=== PATIENT | male | born 1935 | race Caucasian/White ===

== ENCOUNTER 2021-03-11 14:23 | Inpatient (IN) | payer MEDICARE, MEDICAID ==
[~2021-03-11] VITALS: Ht 185.5 cm; Wt 77.3 kg
[2021-03-11] MEDS ORDERED: ONDANSETRON 4 MG (ZOFRAN) ORAL DISSOLVE TAB PO PRN (16:15)
[2021-03-11] MEDS ORDERED: ENOXAPARIN 40 MG/0.4 ML (LOVENOX) SYR SC SCH (16:15)
[2021-03-11] MEDS ORDERED: MELATONIN 3 MG TABLET PO PRN (16:15)
[2021-03-11] MEDS ORDERED: ACETAMINOPHEN 325 MG TABLET PO PRN (16:15)
[2021-03-11] MEDS ORDERED: ONDANSETRON 4 MG/2 ML (SDV) Z0FRAN IV PRN (16:15)
[2021-03-11] MEDS ORDERED: ANTACID SUSP 30 ML UDC (MYLANTA) PO PRN (16:15)
[2021-03-11] MEDS ORDERED: BISACODYL 10 MG SUPP (DULCOLAX) PR PRN (16:15)
[2021-03-11] MEDS ORDERED: polyethylene glycoL POWDER 17 GM (MIRALAX) PACK PO PRN (16:15)
[2021-03-11] MEDS: niCARdipine IV 50 MG in NS (IVPB) 230 ML IV SCH (17:50)
--- NOTE | 2021-03-11 18:36 | History & Physical-Hospitalist ---
History of Present Illness HPI/Chief Complaint Jamie Douglas is an 85 year old male with PMH HTN, T2DM, pacemaker, who presented with altered mental status. He presented to [facility]. They found him to be very bradycardic. He was given Atropine and his heart rates improved. He was transferred for Cardiology evaluation. Upon my exam, he denies chest pain. He is not having palpitations. He is not short of breath. He says he has a defibrillator and thinks it is a pacemaker too. He is a poor historian. His daughter is present but she is unable to answer questions about his medical history as well. She says that he choked on a chip earlier and she thinks this is what caused his problems. He was reportedly nauseous and vomiting prior to arrival. Source: patient, family Exam Limitations: physical impairment (hearing difficulty, dementia) Date Seen 03/11/21 Time Seen by a Provider: 18:00 Attending Physician Kristie Youssef MD PCP No,Local Physician Referring Physician Date of Admission Mar 11, 2021 at 15:05 Home Medications & Allergies Home Medications Reviewed patient Home Medication Reconciliation performed by pharmacy medication reconciliations diet technician registered and/or nursing. Patients Allergies have been reviewed. Allergies Allergies Coded Allergies No Allergy Information Available (Ntlognbitb41/11/21) Past Tnpenbz-Ezfkbb-Zxmaup Hx Patient Social History Tobacco Use?: No Use of E-Cig and/or Vaping dev: No Substance use?: No Alcohol Use?: No Pt feels they are or have been: No Immunizations Up To Date Tetanus Booster (TDap): Unknown Current Status Advance Directives: No Communicates: Verbally Primary Language: Cook Islander Preferred Spoken Language: [place] Islander Is interpretation needed?: No Sensory deficits: Hearing impairment Implanted or Applied Medical D: Pacemaker Past Medical History Surgeries: Defibrillator, Pacemaker Hypertension Diabetes, Insulin dep Family Medical History No Pertinent Family Hx Review of Systems Constitutional: no symptoms reported EENTM: no symptoms reported Respiratory: no symptoms reported Cardiovascular: no symptoms reported Gastrointestinal: nausea, vomiting Genitourinary: no symptoms reported Musculoskeletal: no symptoms reported Skin: no symptoms reported Psychiatric/Neurological: No Symptoms Reported Physical Exam Physical Exam Vital Signs Vital Signs - First Documented 03/11/21 03/11/21 15:20 15:45 Pulse 57 Resp 18 B/P (MAP) 200/93 Pulse Ox 94 O2 Delivery Room Air Capillary Refill : Height, Weight, BMI Height: '" Weight: lbs. oz. kg; 23.59 BMI Method: General Appearance: No Apparent Distress, Chronically ill, Thin HEENT: PERRL/EOMI, Pharynx Normal Neck: Normal Inspection, Supple Respiratory: Lungs Clear, Normal Breath Sounds, No Respiratory Distress, Other (left chest wall subcutaneous device) Cardiovascular: No Edema, No Murmur, Bradycardia Gastrointestinal: Normal Bowel Sounds, Non Tender, Soft, Mass (left upper quadrant, firm, mobile) Extremity: Normal Inspection, Non Tender, No Pedal Edema Neurologic/Psychiatric: Alert, Normal Mood/Affect, Disoriented Skin: Normal Color, Warm/Dry Results Results/Procedures Labs Patient resulted labs reviewed. Assessment/Plan Admission Diagnosis Symptomatic bradycardia Admission Status: Inpatient Order (span 2 midnights) Reason for Inpatient Admission: Cardiology evaluation Assessment and Plan Symptomatic bradycardia Pacemaker malfunction Cardiology consulted Monitor on telemetry Repeat EKG Hold Metoprolol Consulte TeleICU HTN Cardene ordered Hold home meds T2DM Sliding scale insulin Abdominal mass XR abdomen ordered DVT prophylaxis: Lovenox Diagnosis/Problems Diagnosis/Problems (1) Symptomatic bradycardia Status: Acute (2) Pacemaker malfunction Status: Acute (3) HTN (hypertension) Status: Chronic (4) T2DM (type 2 diabetes mellitus) Status: Chronic (5) Abdominal mass Status: Acute (6) Advanced age Status: Chronic KRISTIE YOUSSEF MD Mar 11, 2021 18:36
--- NOTE | 2021-03-11 20:15 | Diagnostic Imaging Report ---
INDICATION: Abdominal mass. EXAMINATION: Abdominal film obtained at 7:55 p.m. FINDINGS: The abdominal bowel gas pattern is unremarkable. There is moderate stool throughout the colon. There is no overt obstruction or ileus. Stimulator device is seen with battery pack over the midabdomen. IMPRESSION: Unremarkable bowel gas pattern with moderate stool in the colon. Stimulator device is seen with battery pack overlying the mid abdomen. Dictated by: Dictated on workstation # [id number]
[2021-03-11] MEDS: inSUlin ASPART (NovoLOG) 1 UNIT/0.01 ML (CHARGE PER UNIT) SC SCH (22:16)
[2021-03-11] MEDS: DOCUSATE SODIUM 100 MG (COLACE) CAP PO SCH (22:16)
[2021-03-11] MEDS: SENNOSIDES 8.6 MG (SENOKOT) TAB PO SCH (22:17)
[2021-03-12 04:32] LABS: BASOPHILS # (AUTO) 0.1 10^3/uL (0.0-0.1); BASOPHILS % (AUTO) 0 % (0-10); EOSINOPHILS # (AUTO) 0.1 10^3/uL (0.0-0.3); EOSINOPHILS % (AUTO) 1 % (0-10); HEMATOCRIT 33 % (40-54); HEMOGLOBIN 11.4 g/dL (13.3-17.7); LYMPHOCYTES # (AUTO) 1.6 10^3/uL (1.0-4.0); LYMPHOCYTES % (AUTO) 13 % (12-44); MEAN CORPUSCULAR HEMOGLOBIN 27 pg (25-34); MEAN CORPUSCULAR HGB CONC 35 g/dL (32-36); MEAN CORPUSCULAR VOLUME 78 fL (80-99); MONOCYTES # (AUTO) 1.1 10^3/uL (0.0-1.0); MONOCYTES % (AUTO) 10 % (0-12); NEUTROPHILS # (AUTO) 8.7 10^3/uL (1.8-7.8); NEUTROPHILS % (AUTO) 75 % (42-75); PLATELET COUNT 157 10^3/uL (130-400); WHITE BLOOD COUNT 11.6 10^3/uL (4.3-11.0)
[2021-03-12 04:55] LABS: CALCIUM 8.8 MG/DL (8.5-10.1)
[2021-03-12 05:00] LABS: CREATININE SERUM 1.06 MG/DL (0.60-1.30)
[2021-03-12] MEDS ORDERED: DEXTROSE 50% 50 ML (IMS) SYR IV ONE (05:00)
[2021-03-12] MEDS ORDERED: DEXTROSE 50% 50 ML (IMS) SYR ONE ×2 (05:01→08:08)
[2021-03-12 05:02] LABS: MAGNESIUM 1.8 MG/DL (1.6-2.4)
--- NOTE | 2021-03-12 05:02 | Diagnostic Imaging Report ---
HISTORY: Bradycardia COMPARISON: None TECHNIQUE: Frontal view of the chest FINDINGS: There are interstitial opacities in the lung bases and airspace opacities in the right lung base. There is no large effusion or pneumothorax. The cardiac silhouette is mildly large. Left-sided automatic implantable cardiac defibrillator lead is noted. There is aortic atherosclerosis. IMPRESSION: Bilateral interstitial and airspace opacities, right greater than left, may represent mild edema or infection. Dictated by: Dictated on workstation # [id number]
--- NOTE | 2021-03-12 05:49 | Consultation-Cardiology ---
HPI-Cardiology Cardiology Consultation Date of Consultation 03/12/21 Date of Admission Time Seen by Provider: 05:42 Indication: Bradycardia HPI 85 years old gentleman with history of diabetes mellitus, admitted with change in mental status and malignant hypertension. He was noted to be bradycardic although he had a pacemaker. He is a poor historian, unable to provide history. Denied any chest pain, no shortness of breath. No syncope. He reported that he received a shock earlier prior to his admission. Heart rate is better at this time. Blood pressure is better on Cardene drip. Family yesterday were interviewed by Dr. Morales and they were unable to provide a full history. Home Medications & Allergies Allergies: Coded Allergies: No Allergy Information Available (Unverified , 03/11/21) Home Medication List Reviewed: Yes JLJ-Qlsqlc-Qskqhc Hx Patient Social History Have you traveled recently?: No Alcohol Use?: No Past Medical History Unable to provide past medical history Family Medical History Significant Family History: No Pertinent Family Hx Family Medical Hx Noncontributory Review of Systems-General Review of Systems Constitutional: no symptoms reported, see HPI EENTM: see HPI, no symptoms reported Respiratory: no symptoms reported, see HPI Cardiovascular: no symptoms reported, see HPI Gastrointestinal: see HPI, nausea, vomiting Genitourinary: no symptoms reported, see HPI Musculoskeletal: no symptoms reported Skin: no symptoms reported, see HPI Psychiatric/Neurological: No Symptoms Reported, See HPI Reviewed Test Results Reviewed Test Results Lab Laboratory Tests Test 03/11/21 20:17 03/12/21 04:24 Range/Units Glucometer 147 H 70-110 MG/DL White Blood Count 11.6 H 4.3-11.0 10^3/uL Red Blood Count 4.24 L 4.30-5.52 10^6/uL Hemoglobin 11.4 L 13.3-17.7 g/dL Hematocrit 33 L 40-54 % Mean Corpuscular Volume 78 L 80-99 fL Mean Corpuscular Hemoglobin 27 25-34 pg Mean Corpuscular Hemoglobin Concent 35 32-36 g/dL Red Cell Distribution Width 12.9 10.0-14.5 % Platelet Count 157 130-400 10^3/uL Mean Platelet Volume 11.0 9.0-12.2 fL Immature Granulocyte % (Auto) 0 % Neutrophils (%) (Auto) 75 42-75 % Lymphocytes (%) (Auto) 13 12-44 % Monocytes (%) (Auto) 10 0-12 % Eosinophils (%) (Auto) 1 0-10 % Basophils (%) (Auto) 0 0-10 % Neutrophils # (Auto) 8.7 H 1.8-7.8 10^3/uL Lymphocytes # (Auto) 1.6 1.0-4.0 10^3/uL Monocytes # (Auto) 1.1 H 0.0-1.0 10^3/uL Eosinophils # (Auto) 0.1 0.0-0.3 10^3/uL Basophils # (Auto) 0.1 0.0-0.1 10^3/uL Immature Granulocyte # (Auto) 0.1 0.0-0.1 10^3/uL Sodium Level 138 135-145 MMOL/L Potassium Level 4.0 3.6-5.0 MMOL/L Chloride Level 106 98-107 MMOL/L Carbon Dioxide Level 23 21-32 MMOL/L Anion Gap 9 5-14 MMOL/L Blood Urea Nitrogen 15 7-18 MG/DL Creatinine 1.06 0.60-1.30 MG/DL Estimat Glomerular Filtration Rate 66 BUN/Creatinine Ratio 14 Glucose Level 56 *L 70-105 MG/DL Calcium Level 8.8 8.5-10.1 MG/DL Magnesium Level 1.8 1.6-2.4 MG/DL Physical Exam Physical Exam Vital Signs Vital Signs - First Documented 03/11/21 03/11/21 03/11/21 00:00 15:20 15:45 Temp 36.6 Pulse 57 Resp 18 B/P (MAP) 200/93 Pulse Ox 94 O2 Delivery Room Air Capillary Refill : Height, Weight, BMI Height: '" Weight: lbs. oz. kg; 23.59 BMI Method: General Appearance: No Apparent Distress, Chronically ill, Thin HEENT: PERRL/EOMI, Pharynx Normal Neck: Normal Inspection, Supple Respiratory: Lungs Clear, Normal Breath Sounds, No Respiratory Distress, Other (left chest wall subcutaneous device) Cardiovascular: No Edema, No Murmur, Bradycardia Gastrointestinal: Normal Bowel Sounds, Non Tender, Soft, Mass (left upper quadrant, firm, mobile) Extremity: Normal Inspection, Non Tender, No Pedal Edema Neurologic/Psychiatric: Alert, Normal Mood/Affect, Disoriented Skin: Normal Color, Warm/Dry A/P-Cardiology Admission Diagnosis Hypertensive emergency Pacemaker malfunction Sinus node dysfunction Diabetes mellitus Assessment/Plan Hypertensive emergency, malignant hypertension with change in mental status probably hypertensive encephalopathy on top of dementia. He was started on Cardene drip and achieve adequate blood pressure control, I will start him on losartan and evaluate tolerance and response. Malfunctioning pacemaker/ICD. Patient has an ICD device that is implanted in his abdominal cavity and the lead is advanced subcutaneously up to the left subclavian vein and then to the right ventricle. Patient reported that the device was placed in the mid 90s in his abdomen and he has a scar at that area. I took him to the Station Tender and did fluoroscopy and followed the device and the lead that appeared to be intact. I attempted to interrogate the device using [employer] and [employer] interrogation system, no response and it was unable to communicate with the device. I placed a magnet on top of the device and there is no intrinsic pacing or safety pacing. I am assuming that the device has a depleted battery and he did not have any follow-up for a while for it. I will continue monitoring, will visit with the family and discuss treatment option, upgrading or advancing the device will require transferring to a facility with dye range tender. At this point we will continue to monitor Sinus node dysfunction with transient episode of severe bradycardia. Currently off beta-blockers and calcium channel blockers. I am starting losartan and evaluate tolerance and response. Diabetes mellitus, maintained on sliding scale and managed by primary care physician [place] Anderson historian. FADUMO CASTANON MD Mar 12, 2021 05:48
--- NOTE | 2021-03-12 05:51 | Cardiac Procedure Note ---
Cardiology Procedures Date of Procedure 03/12/21 Fluoroscopy for pacemaker device: Patient has a device implanted in the abdomen, chest x-ray showed portion of the lead and had abdominal x-ray showing the device. Patient was brought to the Lockstitch Machine Operator, no sedation was required, fluoroscopy and inspection of the device and the lead was made showing intact device with a scar on top of it and the abdomen and the lead was advanced through the left subclavian vein to the right ventricle. It appeared to be implanted this way and not migrated device. I attempted to interrogate the device with [employer] and [email or web address], both equipment did not recognize the device. I placed a magnet on top of the device and there was no safety pacing or any pacing from the device which suggest that the battery has been depleted Conclusion Intact single-chamber ICD device implanted in the abdominal cavity Depleted pacemaker device FADUMO CASTANON MD Mar 12, 2021 05:51
[2021-03-12] MEDS: niCARdipine IV 50 MG in NS (IVPB) 230 ML IV SCH (07:35)
[2021-03-12] MEDS: inSUlin ASPART (NovoLOG) 1 UNIT/0.01 ML (CHARGE PER UNIT) SC SCH ×3 (07:35→20:36)
[2021-03-12] MEDS: MAGNESIUM 1 GM/100 ML IVPB 100 ML IV SCH (07:36)
[2021-03-12] MEDS: POTASSIUM CL 10MEQ/50ML IVPB 50 ML IV SCH (07:36)
[2021-03-12] MEDS: KCL 20 MEQ TAB (K-DUR) PO SCH (07:37)
--- NOTE | 2021-03-12 08:59 | Progress Note - Hospitalist ---
Subjective HPI/CC On Admission Jamie Douglas is an 85 year old male with PMH HTN, T2DM, pacemaker, who presented with altered mental status. He presented to [place] [facility]. They found him to be very bradycardic. He was given Atropine and his heart rates improved. He was transferred for Cardiology evaluation. Upon my exam, he denies chest pain. He is not having palpitations. He is not short of breath. He says he has a defibrillator and thinks it is a pacemaker too. He is a poor historian. His daughter is present but she is unable to answer questions about his medical history as well. She says that he choked on a chip earlier and she thinks this is what caused his problems. He was reportedly nauseous and vomiting prior to arrival. Objective Exam Vital Signs Vital Signs Date Time Temp Pulse Resp B/P (MAP) Pulse Ox O2 Delivery O2 Flow Rate FiO2 03/12/21 12:00 52 19 164/68 96 Room Air 03/12/21 08:00 36.4 Capillary Refill : Results/Procedures Lab Laboratory Tests 03/12/21 04:24 Patient resulted labs reviewed. YAMEL KEARNS Mar 12, 2021 08:58
[2021-03-12] MEDS: LOSARTAN 50 MG (COZAAR) TAB PO SCH ×2 (09:00→09:03)
[2021-03-12] MEDS: SENNOSIDES 8.6 MG (SENOKOT) TAB PO SCH ×2 (09:01→20:37)
[2021-03-12] MEDS: DOCUSATE SODIUM 100 MG (COLACE) CAP PO SCH ×2 (09:01→20:37)
[2021-03-12] MEDS: ENOXAPARIN 40 MG/0.4 ML (LOVENOX) SYR SC SCH (09:01)
--- NOTE | 2021-03-12 10:33 | Tele-ICU Progress Note ---
Subjective Date Seen by a Provider: Mar 12, 2021 Time Seen by a Provider: 09:30 Subjective/Events-last exam This virtual visit was conducted using real time audio/video. Thank you for asking us to see this patient for symptomatic bradycardia. Recent events: Interrogation of PM/AICD revealed depleted batteries. PE: Episodes of bradycardia down to 20s. O2 sat 95% on RA. HEENT: No obvious masses, adenopathy or JVD. Chest: clear to auscultation. CV: RRR S1 S2 No murmur or added sounds. Abd: Non-tender. Bowel sounds Y. : Unremarkable. Andino N. FORENSIC STRUCTURAL ENGINEER/psychiatric: Grossly intact. No obvious focal findings. Extremities: No edema. Capillary refill < 3 seconds. Skin: unremarkable. Results: Elevated WCC 11.6. Decreased Hb 11.4. CXR: B opacities. Available chart/ vitals / labs / images reviewed. Video assessment done using teleICU camera, rest of exam as per RN. A/P: Bradycardia: Continue present management per cardiology service. Critical Care: critically ill patient. Cont. SSI, Horacio. Cardene stopped. Discussed with RN Yvonne. Asked RN to reach out to eICU if any questions or concerns later. Time spent with patient/coordination of care with other health professionals (mins): Sepsis Event Evaluation Height, Weight, BMI Height: '" Weight: lbs. oz. kg; 23.59 BMI Method: Exam Exam Patient acknowledged, consented, and participated in this virtual visit which was conducted using real time audio/video Vital Signs Date Time Temp Pulse Resp B/P (MAP) Pulse Ox O2 Delivery O2 Flow Rate FiO2 03/12/21 10:00 59 23 158/75 91 Room Air 03/12/21 09:00 58 16 138/63 94 Room Air 03/12/21 08:00 96 Room Air 03/12/21 08:00 36.4 03/12/21 08:00 56 21 135/63 94 Room Air 03/12/21 07:45 60 28 124/60 91 Room Air 03/12/21 07:30 57 15 157/73 96 Room Air 03/12/21 07:15 55 16 138/70 97 Room Air 03/12/21 07:00 57 28 123/73 91 Room Air 03/12/21 07:00 58 03/12/21 06:45 55 23 145/75 95 Room Air 03/12/21 06:30 51 11 131/65 95 Room Air 03/12/21 06:15 53 28 135/68 93 Room Air 03/12/21 06:00 52 15 141/71 91 Room Air 03/12/21 05:45 50 16 137/61 90 Room Air 03/12/21 05:00 52 15 129/67 97 Room Air 03/12/21 04:45 43 27 130/70 98 Room Air 03/12/21 04:30 15 26 143/87 95 Room Air 03/12/21 04:15 57 20 137/71 99 Room Air 03/12/21 04:00 94 Room Air 03/12/21 04:00 57 21 145/80 97 Room Air 03/12/21 03:45 57 18 134/65 97 Room Air 03/12/21 03:30 59 42 122/92 96 Room Air 03/12/21 03:15 58 16 134/98 99 Room Air 03/12/21 03:00 139/70 Room Air 03/12/21 02:45 57 17 152/70 99 Room Air 03/12/21 02:30 54 16 131/72 99 Room Air 03/12/21 02:15 55 18 143/70 98 Room Air 03/12/21 02:00 54 17 142/62 99 Room Air 03/12/21 01:45 57 12 141/71 100 Room Air 03/12/21 01:30 56 12 129/64 99 Room Air 03/12/21 01:15 58 16 128/61 99 Room Air 03/12/21 01:00 74 Room Air 03/12/21 01:00 70 03/12/21 00:45 130/78 Room Air 03/12/21 00:30 64 29 133/75 99 Room Air 03/12/21 00:15 81 16 123/61 98 Room Air 03/12/21 00:00 130/78 Room Air 03/12/21 00:00 94 Room Air 03/12/21 00:00 36.8 03/11/21 23:45 60 20 119/60 98 Room Air 03/11/21 23:30 62 16 118/74 97 Room Air 03/11/21 23:15 62 3 125/59 97 Room Air 03/11/21 23:00 65 17 133/65 97 Room Air 03/11/21 22:45 63 7 128/70 96 Room Air 03/11/21 22:30 63 10 126/73 72 Room Air 03/11/21 22:15 61 33 157/100 82 Room Air 03/11/21 22:00 59 47 134/69 98 Room Air 03/11/21 21:45 63 35 138/64 99 Room Air 03/11/21 21:30 65 38 131/69 98 Room Air 03/11/21 21:15 72 29 133/67 98 Room Air 03/11/21 21:00 71 23 127/62 97 Room Air 03/11/21 20:45 74 10 115/62 96 Room Air 03/11/21 20:30 75 73 163/92 84 Room Air 03/11/21 20:15 65 34 153/60 95 Room Air 03/11/21 20:00 94 Room Air 03/11/21 20:00 36.2 03/11/21 20:00 66 18 141/56 98 Room Air 03/11/21 19:45 64 34 142/85 100 Room Air 03/11/21 19:30 65 30 133/82 93 Room Air 03/11/21 19:15 63 29 123/86 91 Room Air 03/11/21 19:00 66 39 122/97 93 Room Air 03/11/21 19:00 70 03/11/21 18:00 58 25 161/82 92 Room Air 03/11/21 17:06 54 03/11/21 17:00 55 20 171/86 100 Room Air 03/11/21 16:45 60 16 155/114 94 Room Air 03/11/21 16:30 12 157/79 Room Air 03/11/21 16:15 62 26 171/73 Room Air 03/11/21 16:00 56 16 199/88 Room Air 03/11/21 15:45 57 18 200/93 98 Room Air 03/11/21 15:20 94 Room Air I & O 03/12/21 07:00 Intake Total 300 ml Output Total 600 ml Balance -300 ml Height & Weight Height: '" Weight: lbs. oz. kg; 23.59 BMI Method: General Appearance: No Apparent Distress, Chronically ill, Thin HEENT: PERRL/EOMI, Pharynx Normal Neck: Normal Inspection, Supple Respiratory: Lungs Clear, Normal Breath Sounds, No Respiratory Distress, Other (left chest wall subcutaneous device) Cardiovascular: No Edema, No Murmur, Bradycardia Peripheral Pulses: 1+ Dorsalis Pedis (R), 1+ Left Dors-Pedis (L) Extremity: Normal Inspection, Non Tender, No Pedal Edema Neurologic/Psychiatric: Alert, Normal Mood/Affect, Disoriented Skin: Normal Color, Warm/Dry Results Lab Laboratory Tests 03/12/21 04:24 Assessment/Plan Assessment/Plan See free text Critical Care: Critically Ill Patient JERMAINE GILLESPIE MD Mar 12, 2021 10:33
[2021-03-12] MEDS ORDERED: FUROSEMIDE 40 MG/4 ML INJ (LASIX) IVP ONE (11:30)
--- NOTE | 2021-03-12 12:55 | Progress Note - Hospitalist ---
YAMEL KEARNS 03/12/21 1255: Subjective HPI/CC On Admission Date Seen by Provider: Mar 12, 2021 Time Seen by Provider: 09:00 Jamie Douglas is an 85 year old male with PMH HTN, T2DM, pacemaker, who presented with altered mental status. He presented to [facility]. They found him to be very bradycardic. He was given Atropine and his heart rates improved. He was transferred for Cardiology evaluation. Upon my exam, he denies chest pain. He is not having palpitations. He is not short of breath. He says he has a defib rillator and thinks it is a pacemaker too. He is a poor historian. His daughter is present but she is unable to answer questions about his medical history as well. She says that he choked on a chip earlier and she thinks this is what caused his problems. He was reportedly nauseous and vomiting prior to arrival. Subjective/Events-last exam The patient was in bed comfortably this morning. He did not have any acute complaints. Nursing reported that his HR dropped to 29 BPM last night. Review of Systems PT unable to answer ROS questions Objective Exam Vital Signs Vital Signs Date Time Temp Pulse Resp B/P (MAP) Pulse Ox O2 Delivery O2 Flow Rate FiO2 03/12/21 12:00 52 19 164/68 96 Room Air 03/12/21 08:00 36.4 Capillary Refill : General Appearance: No Apparent Distress, Chronically ill HEENT: PERRL/EOMI, Pharynx Normal, Moist Mucous Membranes Respiratory: Chest Non Tender, Lungs Clear, Normal Breath Sounds, No Accessory Muscle Use, No Respiratory Distress Cardiovascular: Regular Rate, Rhythm, No Murmur, Normal Peripheral Pulses Gastrointestinal: Normal Bowel Sounds, No Organomegaly, Non Tender, Soft, Mass (Left side, near midline) Extremity: No Calf Tenderness, No Pedal Edema Neurologic/Psychiatric: Alert, Disoriented (was able to state his location, but unable to state the year) Skin: Normal Color, Warm/Dry Results/Procedures Lab Laboratory Tests 03/12/21 04:24 Patient resulted labs reviewed. Assessment/Plan Assessment and Plan Assess & Plan/Chief Complaint 85 YO male admitted for symptomatic bradycardia and pacemaker malfunction. Hx of HTN, T2DM, and abdominal mass. Symptomatic bradycardia Pacemaker malfunction Cardiology managing Hold Metoprolol Discuss code status with granddaughter HTN Cardene stopped switched to Losartan T2DM Sliding scale insulin Abdominal mass No acute management DVT prophylaxis: Lovenox JANELL YOUSSEF MD 03/12/21 1839: Subjective HPI/CC On Admission Time Seen by Provider: 10:20 Assessment/Plan Assessment and Plan Assess & Plan/Chief Complaint Patient comfortable and asymptomatic. Heart rate stable at this time, intermittent bradycardia overnight reported. Cardiology following. No family at bedside. Attempt to contact family unsuccessful. Diagnosis/Problems Diagnosis/Problems (1) Symptomatic bradycardia Status: Acute (2) Pacemaker malfunction Status: Acute (3) T2DM (type 2 diabetes mellitus) Status: Acute Qualifiers: Qualified Codes: E11.649 - Type 2 diabetes mellitus with hypoglycemia without coma; Z79.4 - superintendent terminal (current) use of insulin Supervisory-Addendum Brief Verification & Attestation Participated in pt care: history, MDM, physical Personally performed: exam, history, MDM, supervision of care Care discussed with: Medical Student Procedures: n/a Results interpretation: Verified all documentation A medical student performed and documented this service in my presence. I reviewed and verified all information documented by the medical student and made modifications to such information, when appropriate. I personally performed the physical exam and medical decision making. YAMEL KEARNS Mar 12, 2021 12:55 JANELL YOUSSEF MD Mar 12, 2021 18:39
[2021-03-13 04:56] LABS: CALCIUM 8.7 MG/DL (8.5-10.1)
[2021-03-13 05:01] LABS: CREATININE SERUM 1.35 MG/DL (0.60-1.30)
[2021-03-13 05:03] LABS: MAGNESIUM 1.7 MG/DL (1.6-2.4)
[2021-03-13] MEDS: KCL 20 MEQ TAB (K-DUR) PO SCH (05:59)
[2021-03-13] MEDS: MAGNESIUM 1 GM/100 ML IVPB 100 ML IV SCH (05:59)
[2021-03-13] MEDS: POTASSIUM CL 10MEQ/50ML IVPB 50 ML IV SCH (05:59)
[2021-03-13] MEDS: inSUlin ASPART (NovoLOG) 1 UNIT/0.01 ML (CHARGE PER UNIT) SC SCH ×2 (06:00→13:50)
--- NOTE | 2021-03-13 08:38 | Cardiology Progress Note ---
Subjective Date Seen by Provider: Mar 13, 2021 Time Seen by Provider: 08:36 Subjective/Events-last exam Patient is laying down in bed, still confused. Currently heart rate is better. No new complaint. Review of Systems General: No Chills, No Night Sweats; Fatigue, Malaise; No Appetite, No Other HEENT: No Head Aches, No Visual Changes, No Eye Pain, No Ear Pain, No Dysphasia, No Sinus Congestion, No Post Nasal Drip, No Sore Throat, No Other Pulmonary: Dyspnea; No Cough, No Pleuritic Chest Pain, No Other Cardiovascular: No: Chest Pain, Palpitations, Orthopnea, Paroxysmal Noc. Dyspnea, Edema, Lt Headedness, Other Objective-Cardiology Exam Last Set of Vital Signs Vital Signs 03/13/21 03/13/21 03/13/21 03/13/21 07:50 08:00 08:15 08:30 Temp 36.6 Pulse 51 Resp 18 B/P (MAP) 172/79 Pulse Ox 99 O2 Delivery Room Air I&O Intake and Output 03/13/21 00:00 Intake Total 1110 ml Output Total 950 ml Balance 160 ml Intake Oral 1110 ml Output Urine Total 950 ml # Voids 7 General: Alert, Oriented X3, Cooperative HEENT: Atraumatic, PERRLA Neck: Supple, No JVD, No Thyromegaly Lungs: Clear to Auscultation, Normal Air Movement Heart: Regular Rate, Normal S1, Normal S2, No Murmurs Abdomen: Normal Bowel Sounds, Soft, No Tenderness, No Hepatosplenomegaly, No Masses Extremities: No Clubbing, No Cyanosis, No Edema, Normal Pulses, No Tenderness/Swelling Skin: No Rashes, No Breakdown, No Significant Lesion Neuro: Normal Gait, Normal Speech, Strength at 5/5 X4 Ext, Normal Tone, Sensation Intact Psych/Mental Status: Mental Status NL, Mood NL Results Lab Laboratory Tests 03/13/21 04:29 A/P-Cardiology Admission Diagnosis Hypertensive emergency Pacemaker malfunction Sinus node dysfunction Diabetes mellitus Assessment/Plan Hypertensive emergency, malignant hypertension with change in mental status probably hypertensive encephalopathy on top of dementia. Blood pressure is better. Continue to monitor Malfunctioning pacemaker/ICD. Patient has an ICD device that is implanted in his abdominal cavity and the lead is advanced subcutaneously up to the left subclavian vein and then to the right ventricle. Patient reported that the device was placed in the mid 90s in his abdomen and he has a scar at that area. I took him to the [facility] [employer] and did fluoroscopy and followed the device and the lead that appeared to be intact. I attempted to interrogate the device using [employer] and [employer] interrogation system, no response and it was unable to communicate with the device. I placed a magnet on top of the device and there is no intrinsic pacing or safety pacing. I am assuming that the device has a depleted battery and he did not have any follow-up for a while for it. Patient appears to be on metoprolol as an outpatient, it was discontinued and his heart rate is better, it is in the mid 50s with stable blood pressure. I will discuss with the family regarding the next step in his management plan, he is 85, I recommend conservative management. Planning for discharge today and arrange for follow-up as an outpatient Sinus node dysfunction with transient episode of severe bradycardia. Currently off beta-blockers and calcium channel blockers. Patient was on valsartan as an outpatient which will be restarted. Diabetes mellitus, maintained on sliding scale and managed by primary care physician Dementia, poor historian. FADUMO CASTANON MD Mar 13, 2021 08:38
[2021-03-13] MEDS: ENOXAPARIN 40 MG/0.4 ML (LOVENOX) SYR SC SCH (08:55)
[2021-03-13] MEDS ORDERED: VALSARTAN 160 MG (DIOVAN) TABLET PO SCH (09:00)
[2021-03-13] MEDS: DOCUSATE SODIUM 100 MG (COLACE) CAP PO SCH (09:07)
[2021-03-13] MEDS: SENNOSIDES 8.6 MG (SENOKOT) TAB PO SCH (09:07)
--- NOTE | 2021-03-13 09:41 | Tele-ICU Progress Note ---
Subjective Date Seen by a Provider: Mar 13, 2021 Time Seen by a Provider: 09:41 Sepsis Event Evaluation Height, Weight, BMI Height: '" Weight: lbs. oz. kg; 23.59 BMI Method: Exam Exam Patient acknowledged, consented, and participated in this virtual visit which was conducted using real time audio/video Vital Signs Date Time Temp Pulse Resp B/P (MAP) Pulse Ox O2 Delivery O2 Flow Rate FiO2 03/13/21 08:30 51 18 99 03/13/21 08:15 56 29 93 Room Air 03/13/21 08:02 Room Air 03/13/21 08:00 53 24 172/79 100 Room Air 03/13/21 07:50 36.6 03/13/21 07:45 51 16 95 Room Air 03/13/21 07:30 53 12 96 Room Air 03/13/21 07:15 55 18 99 Room Air 03/13/21 07:00 52 03/13/21 07:00 56 21 137/77 83 Room Air 03/13/21 06:00 58 18 160/91 97 Room Air 03/13/21 05:00 60 18 182/86 96 Room Air 03/13/21 04:00 99 Room Air 03/13/21 04:00 59 17 189/98 96 Room Air 03/13/21 03:00 65 16 125/86 94 Room Air 03/13/21 02:00 57 17 166/79 97 Room Air 03/13/21 01:00 59 03/13/21 01:00 61 17 184/83 97 Room Air 03/13/21 00:00 99 Room Air 03/13/21 00:00 73 20 170/74 Room Air 03/12/21 23:47 70 184/85 91 Room Air 03/12/21 23:28 36.5 03/12/21 23:00 60 195/98 94 Room Air 03/12/21 22:00 59 13 187/92 100 Room Air 03/12/21 21:00 55 11 177/88 97 Room Air 03/12/21 20:00 60 15 176/90 97 Room Air 03/12/21 20:00 36.6 03/12/21 20:00 96 Room Air 03/12/21 19:00 60 11 160/82 93 Room Air 03/12/21 19:00 59 03/12/21 18:00 63 20 151/78 94 Room Air 03/12/21 17:00 56 11 162/82 93 Room Air 03/12/21 16:44 36.3 03/12/21 16:00 96 Room Air 03/12/21 16:00 57 20 131/70 98 Room Air 03/12/21 15:00 59 10 136/85 93 Room Air 03/12/21 14:00 54 11 146/83 93 Room Air 03/12/21 13:00 48 14 123/102 93 Room Air 03/12/21 12:57 54 03/12/21 12:00 36.3 03/12/21 12:00 52 19 164/68 96 Room Air 03/12/21 12:00 96 Room Air 03/12/21 11:00 58 10 134/90 96 Room Air 03/12/21 10:00 59 23 158/75 91 Room Air I & O 03/13/21 07:00 Intake Total 1060 ml Output Total 950 ml Balance 110 ml Height & Weight Height: '" Weight: lbs. oz. kg; 23.59 BMI Method: General Appearance: No Apparent Distress, Chronically ill HEENT: PERRL/EOMI, Pharynx Normal, Moist Mucous Membranes Neck: Normal Inspection, Supple Respiratory: Chest Non Tender, Lungs Clear, Normal Breath Sounds, No Accessory Muscle Use, No Respiratory Distress Cardiovascular: Regular Rate, Rhythm, No Murmur, Normal Peripheral Pulses Peripheral Pulses: 1+ Dorsalis Pedis (R), 1+ Left Dors-Pedis (L) Extremity: No Calf Tenderness, No Pedal Edema Neurologic/Psychiatric: Alert, Disoriented (was able to state his location, but unable to state the year) Skin: Normal Color, Warm/Dry Results Lab Laboratory Tests 03/12/21 04:24 03/13/21 04:29 Assessment/Plan Assessment/Plan (Tele-ICU Physician , Progress Note ) Available chart/ vitals / labs / Images reviewed Video assessment done using teleICU camera, rest of exam as per RN Discussed with RN , EXAM PER RN Events overnight : Afebrile FiO2 - ra I/O = even Drips: Pressors: , hemodynamically stable Consultants: cards Hospital course: (03/11) Admitted a 85 y/o who was transferred from [facility] for symptomatic bradycardia. Possible pacemaker malfunction. A/P -Hypertensive emergency, malignant hypertension - off frips , po as per cards Interst changes on CXT , mildly eleb WBC - no cough , no fever - monitor off ABX now Malfunctioning pacemaker/ICD - as per cards Sinus node dysfunction with transient episode of severe bradycardia - a sper cards acute kidney insuff - monitor closely Cr , not on diuretics Hypoglycemia - resolved , monitor Lines : (Central Line Necessity Reviewed) Andino: OG: Nutrition: po Analgesia: Anxiety/ delirium - baseline confusion VTE Prophylaxis: gio 40 Stress Ulcer Prophylaxis: po Plans in collaboration with bedside consultants and IM MDs. Discussed with RN to reach out if any questions or concerns A total of 31 minutes of critical care time was devoted to this patient today, required to treat and/or prevent further deterioration of critical care condition ( as above) . LYNN ASTORGA MD Mar 13, 2021 09:41
[2021-03-13 09:57] LABS: ALBUMIN 3.3 GM/DL (3.2-4.5)
[2021-03-13 10:00] LABS: TOTAL PROTEIN 6.9 GM/DL (6.4-8.2)
[2021-03-13 10:02] LABS: BILIRUBIN,TOTAL 1.2 MG/DL (0.1-1.0)
[2021-03-13 10:06] LABS: BILIRUBIN,DIRECT 0.5 MG/DL (0.0-0.3); BILIRUBIN,INDIRECT 0.7 MG/DL
--- NOTE | 2021-03-13 10:22 | Discharge Summary ---
Discharge Summary Hospital Course Was the Problem List Reviewed?: Yes Problems/Dx: (1) Symptomatic bradycardia Status: Acute (2) Pacemaker malfunction Status: Acute (3) T2DM (type 2 diabetes mellitus) Status: Acute Qualifiers: Qualified Codes: E11.649 - Type 2 diabetes mellitus with hypoglycemia without coma; Z79.4 - termite technician (current) use of insulin Hospital Course Date of Admission: Mar 11, 2021 at 15:05 Admission Diagnosis : Family Physician/Provider: No,Local Physician Date of Discharge: 03/13/21 Discharge Diagnosis: Symptomatic bradycardia, nonfunctioning pacemaker suspected for 10 years, dementia Hospital Course: Hospital course: Pt had a brief hospital course, he was admitted when he was found to have bradycardia and his pacemaker was incapacitated and needed battery changed over but upon further assessment, cardiology evaluated the pacemaker to have been not functioning for ten years. 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 Labs and Pending Lab Test: Laboratory Tests 03/12/21 10:29: Glucometer 114H 03/12/21 15:41: Glucometer 90 03/12/21 20:36: Glucometer 98 03/13/21 04:29: Sodium Level 138, Potassium Level 4.0, Chloride Level 104, Carbon Dioxide Level 23, Anion Gap 11, Blood Urea Nitrogen 17, Creatinine 1.35H, Estimat Glomerular Filtration Rate 50, BUN/Creatinine Ratio 13, Glucose Level 107H, Calcium Level 8.7, Magnesium Level 1.7, Total Bilirubin 1.2H, Direct Bilirubin 0.5H, Indirect Bilirubin 0.7, Aspartate Amino Transf (AST/SGOT) 19, Alanine Aminotransferase (ALT/SGPT) 10, Alkaline Phosphatase 89, Total Protein 6.9, Albumin 3.3 Microbiology 03/11/21 MRSA Screen - Final, Complete MRSA not isolated Assessment/Pt Instructions PCP in 1 week Discharge Planning: <30 minutes discharge planning Discharge Instructions Discharge Diet: No Restrictions Activity as Tolerated: Yes Discharge Physical Examination Vital Signs Vital Signs Date Time Temp Pulse Resp B/P (MAP) Pulse Ox O2 Delivery O2 Flow Rate FiO2 03/13/21 10:00 72 18 160/94 03/13/21 09:15 Room Air 03/13/21 08:45 99 03/13/21 07:50 36.6 General Appearance: No Apparent Distress, WD/WN, Chronically ill Respiratory: Lungs Clear Cardiovascular: Regular Rate, Rhythm Allergies: Coded Allergies: No Allergy Information Available (Unverified , 03/11/21) Discharge Summary Date of Admission Mar 11, 2021 at 15:05 Date of Discharge Discharge Date: Mar 13, 2021 Admission Diagnosis Symptomatic bradycardia Discharge Diagnosis (1) Symptomatic bradycardia Status: Acute (2) Pacemaker malfunction Status: Acute (3) T2DM (type 2 diabetes mellitus) Status: Acute Qualifiers: Qualified Codes: E11.649 - Type 2 diabetes mellitus with hypoglycemia without coma; Z79.4 - assisted (current) use of insulin KENTRELL SHIPLEY DO Mar 13, 2021 10:22
--- NOTE | 2021-03-13 12:23 | Pulmonary Progress Note ---
MARLY ABREUSHIELA 03/13/21 1223: Subjective Subjective/Events-last exam The patient is resting comfortably this morning and is a bit confused, unsure what his baseline is. Patient has no complaints at this time. Review of Systems General: No Chills, No Night Sweats HEENT: No Head Aches, No Visual Changes, No Eye Pain Pulmonary: No Dyspnea, No Cough Cardiovascular: No: Chest Pain, Palpitations Gastrointestinal: No: Nausea, Vomiting, Abdominal Pain Genitourinary: No Dysuria, No Frequency Musculoskeletal: No: other, neck pain, shoulder pain, arm pain, back pain, hand pain, leg pain, foot pain Neurological: Confusion; No: Weakness, Numbness, Incoordination, Change in speech, Seizures Exam Exam Patient acknowledged, consented, and participated in this virtual visit which was conducted using real time audio/video Vital Signs Date Time Temp Pulse Resp B/P (MAP) Pulse Ox O2 Delivery O2 Flow Rate FiO2 03/13/21 10:00 72 18 160/94 03/13/21 09:30 58 20 03/13/21 09:15 54 19 Room Air 03/13/21 09:00 87 30 Room Air 03/13/21 08:45 49 19 99 Room Air 03/13/21 08:30 51 18 99 03/13/21 08:30 51 18 99 Room Air 03/13/21 08:15 56 29 93 Room Air 03/13/21 08:02 Room Air 03/13/21 08:00 53 24 172/79 100 Room Air 03/13/21 07:50 36.6 03/13/21 07:45 51 16 95 Room Air 03/13/21 07:30 53 12 96 Room Air 03/13/21 07:15 55 18 99 Room Air 03/13/21 07:00 52 03/13/21 07:00 56 21 137/77 83 Room Air 03/13/21 06:00 58 18 160/91 97 Room Air 03/13/21 05:00 60 18 182/86 96 Room Air 03/13/21 04:00 99 Room Air 03/13/21 04:00 59 17 189/98 96 Room Air 03/13/21 03:00 65 16 125/86 94 Room Air 03/13/21 02:00 57 17 166/79 97 Room Air 03/13/21 01:00 59 03/13/21 01:00 61 17 184/83 97 Room Air 03/13/21 00:00 99 Room Air 03/13/21 00:00 73 20 170/74 Room Air 03/12/21 23:47 70 184/85 91 Room Air 03/12/21 23:28 36.5 03/12/21 23:00 60 195/98 94 Room Air 03/12/21 22:00 59 13 187/92 100 Room Air 03/12/21 21:00 55 11 177/88 97 Room Air 03/12/21 20:00 60 15 176/90 97 Room Air 03/12/21 20:00 36.6 03/12/21 20:00 96 Room Air 03/12/21 19:00 60 11 160/82 93 Room Air 03/12/21 19:00 59 03/12/21 18:00 63 20 151/78 94 Room Air 03/12/21 17:00 56 11 162/82 93 Room Air 03/12/21 16:44 36.3 03/12/21 16:00 96 Room Air 03/12/21 16:00 57 20 131/70 98 Room Air 03/12/21 15:00 59 10 136/85 93 Room Air 03/12/21 14:00 54 11 146/83 93 Room Air 03/12/21 13:00 48 14 123/102 93 Room Air 03/12/21 12:57 54 I & O 03/13/21 07:00 Intake Total 1060 ml Output Total 950 ml Balance 110 ml Height & Weight Height: '" Weight: lbs. oz. kg; 23.59 BMI Method: General Appearance: No Apparent Distress, Chronically ill HEENT: PERRL/EOMI, Pharynx Normal, Moist Mucous Membranes Neck: Normal Inspection, Supple Respiratory: Chest Non Tender, Lungs Clear, Normal Breath Sounds, No Accessory Muscle Use, No Respiratory Distress Cardiovascular: Regular Rate, Rhythm, No Murmur, Normal Peripheral Pulses Peripheral Pulses: 1+ Dorsalis Pedis (R), 1+ Left Dors-Pedis (L) Extremity: No Calf Tenderness, No Pedal Edema Neurologic/Psychiatric: Alert, Disoriented (was able to state his location, but unable to state the year) Skin: Normal Color, Warm/Dry Results Lab Laboratory Tests 03/12/21 04:24 03/13/21 04:29 Assessment/Plan Assessment/Plan Hypertensive emergency with hypertensive encephalopathy - BP now stable off Cardene drip Interstitial changes on CXR with mild leukocytosis - no cough , no fever - monitor off ABX now Malfunctioning pacemaker/ICD - patient had pacemaker placed in the 90s - Appears to be not functioning - Cardiology will consult with family before decision making on pacemaker Sinus node dysfunction with transient episode of severe bradycardia - Holdiing home beta blockers or CCB - Heart rate normal currently without medications LYNN ASTORGA MD 03/17/21 1428: Subjective Date Seen by a Provider: Mar 13, 2021 Time Seen by a Provider: 12:00 Supervisory-Addendum Brief Verification & Attestation Participated in pt care: history, MDM, physical Personally performed: exam, history, MDM, supervision of care Care discussed with: Medical Student Procedures: n/a Results interpretation: Verified all documentation A medical student performed and documented this service. I reviewed information documented by the medical student . Medical student performed patients physical exam . Medical decision making was done during tele-rounds with this medical student and a bedside RN . Please see my notes for details /clarification of assessment and plans CIELO ABREU Mar 13, 2021 12:23 LYNN ASTORGA MD Mar 17, 2021 14:28
--- NOTE | 2021-03-13 12:32 | Progress Note ---
[employer] MED STUDENT 03/13/21 1232: Progress Note Mr. Douglas is an 85 yo male that presented to [place] ER on 03/11 for evaluation of bradycardia. He has PMH of HTN and T2DM and also some baseline dementia. He was also thought to be a bit AMS in the ER as well. He was found to be pretty bradycardic and so was admitted to [facility] ICU with cardiology consult. He was found to have a pacemaker that was installed sometime in the and had long been without power. He was taken off of his metoprolol and was doing fine. HR on day of discharge was 58, Cardiology did not think there is value to fixing pacemaker since it had been so long. He was discharged after a stay of 2 days. He had a pretty uneventful hospital course. One night nursing did report his HR as 29, but for the most part was stable off of his metoprolol. Cardiology recommended cards f/u sometime after his discharge. Supervisory-Addendum Brief Verification & Attestation Participated in pt care: history, physical Personally performed: exam Care discussed with: Medical Student Procedures: n/a n/a DAYNA SHIPLEY DO 03/14/21 0534: Supervisory-Addendum Brief Verification & Attestation Participated in pt care: history, MDM, physical Personally performed: exam, history, MDM, supervision of care Care discussed with: Medical Student Procedures: n/a Results interpretation: Verified all documentation Verification and Attestation of Medical Student E/M Service A medical student performed and documented this service in my presence. I reviewed and verified all information documented by the medical student and made modifications to such information, when appropriate. I personally performed the physical exam and medical decision making. Dayna Shipley, Mar 14, 2021,05:34 [employer] MED STUDENT Mar 13, 2021 12:32 DAYNA SHIPLEY DO Mar 14, 2021 05:34
[2021-03-13] MEDS ORDERED: ALLO300T2 PO (12:55)
[2021-03-13] MEDS ORDERED: METO50TA7 PO (12:55)
[2021-03-13] MEDS ORDERED: SITA100T12 PO (12:55)
[2021-03-13] MEDS ORDERED: ATOR80TA76 PO (12:55)
[2021-03-13] MEDS ORDERED: VALS160T29 PO (12:55)
== END 2021-03-13 14:50 | disposition home or self-care (01) | DRG 309 ==
LOC: ICU 15:05
PROVIDERS: ADMIT Internal Medicine; ATTEND Internal Medicine
PROC: BW111ZZ Fluoroscopy of Abdomen and Pelvis using Low Osmolar Contrast (ICD-10-PCS; principal; 2021-03-12)
DX: T82.111A Breakdown (mechanical) of cardiac pulse generator (battery), initial encounter (principal); I16.1 Hypertensive emergency; I67.4 Hypertensive encephalopathy; R00.1 Bradycardia, unspecified; Z79.4 Long term (current) use of insulin; F03.90 Unspecified dementia, unspecified severity, without behavioral disturbance, psychotic disturbance, mood disturbance, and anxiety; I49.5 Sick sinus syndrome; N28.9 Disorder of kidney and ureter, unspecified; E11.649 Type 2 diabetes mellitus with hypoglycemia without coma; F41.9 Anxiety disorder, unspecified; R41.0 Disorientation, unspecified; R19.00 Intra-abdominal and pelvic swelling, mass and lump, unspecified site; D72.829 Elevated white blood cell count, unspecified
CPT/HCPCS: 36415; 71045; 74018; 80048; 80076; 82947; 83735; 85025; 87081; 93005; 93306